=== PATIENT | male | born 1965 | race American Indian/Alaskan Native ===

== ENCOUNTER 2021-02-22 08:10 | Day surgery (SDC) | payer OTHER ==
[~2021-02-22 08:10] MED LIST: SODIUM CHLORIDE 0.9% 1000 ML 1,000 ML IV SCH
--- NOTE | 2021-02-22 09:07 | Anesthesia Consultation ---
Anesthesia Consult and Med Hx Date of service: 02/22/21 - Airway Anesthetic Teeth Evaluation: Good ROM Head & Neck: Adequate Mental/Hyoid Distance: Adequate Mallampati Class: Class III Intubation Access Assessment: Possibly Difficult - Pre-Operative Health Status ASA Pre-Surgery Classification: ASA3 Proposed Anesthetic Plan: MAC - Pulmonary Hx Smoking: No Hx Respiratory Symptoms: No - Cardiovascular System Hx Hypertension: Yes (took all antihypertensives this morning) Hx Heart Attack/AMI: Yes (11/2020;last dose ASA 2 days ago; follows with outpatient phlebotomy technician) Hx Percutaneous Transluminal Coronary Angioplasty (PTCA): No Hx Cardia Arrhythmia: No - Central Nervous System CVA: No - Endocrine Hx Renal Disease: No Hx Liver Disease: No Hx Insulin Dependent Diabetes: No Hx Non-Insulin Dependent Diabetes: No Hx Thyroid Disease: No - Other Systems Hx Obesity: No - Additional Comments Anesthesia Medical History Comments: No hx anesthetic complications.
--- NOTE | 2021-02-22 09:08 | Anesthesia Day of Surgery ---
Anesthesia Day of Surgery - Day of Surgery Patient Examined: Yes Patient H&P Reviewed: Yes Patient is NPO: Yes Beta Blockers: Yes (metoprolol)
[2021-02-22] MEDS ORDERED: LIDOCAINE MPF (2%) 20 MG/1 ML VIAL 5 ML ONE (09:57)
[2021-02-22] MEDS ORDERED: propofoL 200 MG/20 ML VIAL IV ONE ×2 (09:58→10:18)
--- NOTE | 2021-02-22 10:41 | Procedure Note ---
Date of procedure: 02/22/21 Pre-op diagnosis: Colon Polyp Screening Post-op diagnosis: other (Solitary, Ascending colon Polyp (removed by Cold Biopsy)/ Scattered, Diverticuli (minor)/ Mild to Moderate Internal Hemorrhoids) Procedure: Colonoscopy with Cold Biopsy Anesthesia: MAC Surgeon: LILLY OCHOA Estimated blood loss: minimal Pathology: list Specimen disposition: to lab Condition: stable Disposition: same day (Avoid aspirin and NSAID for 4 days; otherwise resume home medication. Encourage fiber intake and f/u in 1 to 2 weeks ([phone]).)
--- NOTE | 2021-02-22 13:04 | Post Anesthesia Evaluation ---
- Post Anesthesia Evaluation Patient Participated: Yes Airway Patent: Yes Stable Respiratory Function: Yes Nausea/Vomiting: No Temp > 96.8F: Yes Pain Manageable: Yes Adequeate Hydration: Yes Anesthesia Complications: No
--- NOTE | 2021-02-22 13:50 | Operative Report ---
DATE OF SURGERY: 02/22/2021 PROCEDURE: Colonoscopy. INDICATIONS: This is a 55-year-old -[place] gentleman who is having a colonoscopy done as part of colon polyp screening. DESCRIPTION OF PROCEDURE: Procedure was done after getting informed consent. Initial rectal examination was unremarkable. The instrument was passed through the rectum on to the cecum, which was identified with the ileocecal valve and the appendiceal orifice. Visualization was fair to good. Mucosa was washed with copious amounts of water. The cecum was also evaluated on the retroverted view. No additional pathology was noted in the cecum. The scope was withdrawn to the hepatic flexure and reintroduced. In the ascending colon, there was an 8 mm polyp that was removed by cold biopsy with minimal bleeding. The remaining part of the proximal colon showed normal mucosa. There were a few scattered diverticula noted in the transverse colon and in the descending colon. The sigmoid appeared normal. The rectum showed some [id number] internal hemorrhoids on the retroverted view. ASSESSMENT: Colon polyp screening. Solitary small ascending colon polyp removed by cold biopsy. A few scattered diverticula and [id number] internal hemorrhoid. The patient will be asked to avoid aspirin and aspirin-related products for the next few days. Otherwise to resume home medication and encouraged the patient to take fiber supplements and follow up in the office in 1-2 weeks' time. The procedure was done in the GI lab with the assistance of the GI lab team, which included the GI nurse, the build technician and with assistance of anesthesia. TID: [id number] RECEIPT: [id number] CHRIS/VIDAL/DELORIS cc: ____ ____
[2021-02-22 19:25] VITALS: BP 104/67
== END 2021-02-22 08:11 | disposition home or self-care (01) ==
LOC: GIO 08:10
DX: Z12.11 Encounter for screening for malignant neoplasm of colon (principal); K57.30 Diverticulosis of large intestine without perforation or abscess without bleeding; K64.0 First degree hemorrhoids; K63.89 Other specified diseases of intestine; K63.5 Polyp of colon; I10 Essential (primary) hypertension; Z79.899 Other long term (current) drug therapy; Z98.890 Other specified postprocedural states
CPT/HCPCS: 45380; 88305; J2704; J7030